=== PATIENT | female | born 1940 | race Caucasian/White ===

== ENCOUNTER 2017-02-01 13:18 | Inpatient (IN) | payer MEDICARE ==
[~2017-02-01] VITALS: Ht 162.6 cm; Wt 76.5 kg
[2017-02-01] MEDS ORDERED: SODIUM CHLORIDE 0.9% 1,000 ML IV ONE (14:17)
[2017-02-01] MEDS ORDERED: SODIUM CHLORIDE FLUSH 10ML SYR IVF ONE (14:30)
[2017-02-01 14:39] LABS: HEMOGLOBIN 15.7 g/dL (11.7-16.4)
[2017-02-01 14:49] LABS: ASPARTATE AMINO TRANSFERASE 40 U/L (15-37); BLOOD UREA NITROGEN 23 mg/dL (7-18)
[2017-02-01] MEDS ORDERED: LOSA50TA6 PO (14:58)
[2017-02-01] MEDS ORDERED: AMLO10TA2 PO (14:58)
[2017-02-01] MEDS ORDERED: HYDR25TA6 PO (14:58)
[2017-02-01] MEDS ORDERED: ATEN25TA PO (14:58)
[2017-02-01] MEDS ORDERED: LEVO125T5 PO (14:58)
[2017-02-01] MEDS ORDERED: GLIP10TA13 PO (14:58)
[2017-02-01] MEDS ORDERED: ONDANSETRON 2MG/ML, 2ML IVPush ONE (15:00)
[2017-02-01] MEDS ORDERED: MORPHINE SULFATE 4 MG/ML, 1ML IVPush ONE (15:00)
[2017-02-01] MEDS ORDERED: LABETALOL 5MG/ML, 20ML IV PRN (16:00)
[2017-02-01] MEDS: INSULIN REGULAR 100 UNITS/ML, 3ML VIAL SQ-INSULIN SCH ×2 (16:00→21:00)
[2017-02-01] MEDS ORDERED: OXYcodone IR 5MG TABLET PO PRN (16:00)
[2017-02-01] MEDS ORDERED: POLYETHYLENE GLYCOL 17 GM PACKET PO PRN (16:00)
[2017-02-01] MEDS ORDERED: DOCUSATE 100 MG CAPSULE PO PRN (16:00)
[2017-02-01] MEDS ORDERED: BISACODYL 10 MG SUPP PR PRN (16:00)
[2017-02-01] MEDS ORDERED: ONDANSETRON 2MG/ML, 2ML ONE (17:00)
[2017-02-01] MEDS ORDERED: MORPHINE SULFATE 4 MG/ML, 1ML ONE (17:00)
[2017-02-01] MEDS ORDERED: HEPARIN 5,000 UNITS/ML, 1ML ONE (19:37)
[2017-02-01] MEDS: HEPARIN 5,000 UNITS/ML, 1ML SQ SCH (19:42)
[2017-02-01] MEDS: NS + 20MEQ KCL 1,000 ML IV SCH (20:55)
[2017-02-01] MEDS: MOVIPREP POWDER 1 PREP KIT PO SCH ×2 (20:56→21:00)
[2017-02-01 23:52] VITALS: BP 134/90
[2017-02-02] MEDS: ONDANSETRON ODT 4 MG PO PRN (00:20)
[2017-02-02 01:18] VITALS: BP 134/83
[2017-02-02] MEDS: HEPARIN 5,000 UNITS/ML, 1ML SQ SCH ×4 (01:19→23:25)
[2017-02-02] MEDS: MORPHINE SULFATE 4 MG/ML, 1ML IVPush PRN ×3 (01:30→23:31)
[2017-02-02 04:54] LABS: BLOOD UREA NITROGEN 19 mg/dL (7-18)
[2017-02-02 04:56] LABS: HEMOGLOBIN 15.2 g/dL (11.7-16.4)
[2017-02-02] MEDS: NS + 20MEQ KCL 1,000 ML IV SCH ×4 (04:58→22:10)
[2017-02-02 07:27] VITALS: BP 164/90
[2017-02-02] MEDS: SENNA/DOCUSATE TABLET PO SCH (08:07)
[2017-02-02] MEDS: LOSARTAN 50MG TABLET PO SCH (08:07)
[2017-02-02] MEDS: AMLODIPINE 5 MG TABLET PO SCH (08:08)
[2017-02-02] MEDS: LEVOTHYROXINE 125 MCG TABLET PO SCH (08:08)
[2017-02-02] MEDS: HYDROCHLOROTHIAZIDE 25 MG TABLET PO SCH (08:08)
[2017-02-02] MEDS: INSULIN REGULAR 100 UNITS/ML, 3ML VIAL SQ-INSULIN SCH ×4 (08:09→21:00)
[2017-02-02] MEDS: ATENOLOL 25 MG TABLET PO SCH (09:00)
[2017-02-02] MEDS ORDERED: FENTANYL PF 100 MCG/2ML ONE (12:20)
[2017-02-02] MEDS ORDERED: MIDAZOLAM 1 MG/ML, 5ML ONE (12:21)
[2017-02-02 13:59] VITALS: BP 165/92
[2017-02-02 18:53] VITALS: BP 129/77
[2017-02-03 02:19] VITALS: BP 120/76
[2017-02-03 04:48] LABS: ASPARTATE AMINO TRANSFERASE 24 U/L (15-37); BLOOD UREA NITROGEN 10 mg/dL (7-18)
[2017-02-03] MEDS: NS + 20MEQ KCL 1,000 ML IV SCH (06:03)
[2017-02-03] MEDS: INSULIN REGULAR 100 UNITS/ML, 3ML VIAL SQ-INSULIN SCH ×3 (06:24→15:56)
[2017-02-03] MEDS ORDERED: MIDAZOLAM 1 MG/ML, 2ML ONE (06:58)
[2017-02-03] MEDS ORDERED: FENTANYL PF 250 MCG/5ML ONE (06:58)
[2017-02-03] MEDS ORDERED: BUPIVACAINE/PF-EPI 0.25% 1:200K ONE (07:08)
[2017-02-03] MEDS ORDERED: GLYCOPYRROLATE 0.2MG/1ML ONE (07:15)
[2017-02-03] MEDS ORDERED: ROCURONIUM 10 MG/ML ONE (07:15)
[2017-02-03] MEDS ORDERED: PHENYLEPHRINE 10 MG/ML ONE (07:15)
[2017-02-03] MEDS ORDERED: PROPOFOL 10 MG/ML, 20ML ONE (07:15)
[2017-02-03] MEDS ORDERED: CEFOTETAN 2 GM ONE (07:15)
[2017-02-03] MEDS ORDERED: ONDANSETRON 2MG/ML, 2ML ONE (07:15)
[2017-02-03] MEDS ORDERED: NEOSTIGMINE 1 MG/ML, 10ML ONE (07:15)
[2017-02-03] MEDS: HEPARIN 5,000 UNITS/ML, 1ML SQ SCH ×2 (07:41→15:57)
[2017-02-03] MEDS: LEVOTHYROXINE 125 MCG TABLET PO SCH (07:42)
[2017-02-03] MEDS: ATENOLOL 25 MG TABLET PO SCH (07:42)
[2017-02-03] MEDS: SENNA/DOCUSATE TABLET PO SCH (07:42)
[2017-02-03] MEDS: AMLODIPINE 5 MG TABLET PO SCH (07:42)
[2017-02-03] MEDS: HYDROCHLOROTHIAZIDE 25 MG TABLET PO SCH (07:42)
[2017-02-03] MEDS: LOSARTAN 50MG TABLET PO SCH (07:42)
[2017-02-03] MEDS ORDERED: FENTANYL PF 100 MCG/2ML IV PRN (08:30)
[2017-02-03] MEDS ORDERED: PROMETHAZINE 25 MG/ML, 1ML IV PRN (08:30)
[2017-02-03] MEDS ORDERED: LABETALOL 5MG/ML, 20ML IV PRN (08:30)
[2017-02-03] MEDS ORDERED: morphine SULFATE 10 MG/ML, 1ML ONE (08:40)
[2017-02-03] MEDS: morphine SULFATE 10 MG/ML, 1ML IV PRN ×2 (08:41→08:51)
[2017-02-03] MEDS: MORPHINE SULFATE 4 MG/ML, 1ML IVPush PRN ×3 (10:41→21:59)
[2017-02-03] MEDS: D5%-0.45NACL+KCL 20MEQ 1,000 ML IV SCH ×2 (11:05→22:42)
[2017-02-03 14:15] VITALS: BP 141/69
[2017-02-03] MEDS ORDERED: LORazepam 2 MG/ML, 1ML IVPush PRN (17:30)
[2017-02-03] MEDS ORDERED: SCOPOLAMINE PATCH, 1.5MG PATCH.TD72 TD PRN (17:30)
[2017-02-03 19:05] VITALS: BP 112/72
[2017-02-04] MEDS: MORPHINE SULFATE 4 MG/ML, 1ML IVPush PRN ×5 (01:52→21:27)
[2017-02-04] MEDS: LEVOTHYROXINE 125 MCG TABLET PO SCH (05:29)
[2017-02-04 06:47] VITALS: BP 113/76
[2017-02-04] MEDS: LOSARTAN 50MG TABLET PO SCH (08:23)
[2017-02-04] MEDS: HYDROCHLOROTHIAZIDE 25 MG TABLET PO SCH (08:24)
[2017-02-04] MEDS: AMLODIPINE 5 MG TABLET PO SCH (08:24)
[2017-02-04] MEDS: SENNA/DOCUSATE TABLET PO SCH (08:24)
[2017-02-04] MEDS: D5%-0.45NACL+KCL 20MEQ 1,000 ML IV SCH (10:41)
[2017-02-05] MEDS: D5%-0.45NACL+KCL 20MEQ 1,000 ML IV SCH ×2 (01:02→13:18)
[2017-02-05] MEDS: MORPHINE SULFATE 4 MG/ML, 1ML IVPush PRN ×6 (01:35→21:44)
[2017-02-05] MEDS: LEVOTHYROXINE 125 MCG TABLET PO SCH (06:00)
[2017-02-05] MEDS: LOSARTAN 50MG TABLET PO SCH (07:06)
[2017-02-05] MEDS: AMLODIPINE 5 MG TABLET PO SCH (07:07)
[2017-02-05] MEDS: SENNA/DOCUSATE TABLET PO SCH (07:07)
[2017-02-05] MEDS: HYDROCHLOROTHIAZIDE 25 MG TABLET PO SCH (07:07)
[2017-02-05] MEDS: ONDANSETRON 2MG/ML, 2ML IVP PRN ×2 (14:12→21:44)
[2017-02-06] MEDS: D5%-0.45NACL+KCL 20MEQ 1,000 ML IV SCH ×2 (02:40→18:17)
[2017-02-06] MEDS: MORPHINE SULFATE 4 MG/ML, 1ML IVPush PRN ×6 (02:45→22:18)
[2017-02-06] MEDS: LEVOTHYROXINE 125 MCG TABLET PO SCH (06:00)
[2017-02-06] MEDS: SENNA/DOCUSATE TABLET PO SCH (09:00)
[2017-02-06] MEDS: ONDANSETRON 2MG/ML, 2ML IVP PRN (09:58)
[2017-02-06] MEDS: ONDANSETRON ODT 4 MG PO PRN (14:18)
[2017-02-07] MEDS: MORPHINE SULFATE 4 MG/ML, 1ML IVPush PRN ×4 (02:05→13:47)
[2017-02-07] MEDS: D5%-0.45NACL+KCL 20MEQ 1,000 ML IV SCH (06:14)
[2017-02-07] MEDS: ONDANSETRON 2MG/ML, 2ML IVP PRN ×2 (07:23→13:46)
[2017-02-07] MEDS ORDERED: PROCHLORPERAZINE 10MG TABLET PO PRN (09:00)
[2017-02-07] MEDS: SENNA/DOCUSATE TABLET PO SCH (10:14)
[2017-02-07] MEDS: ONDANSETRON ODT 4 MG PO PRN (10:30)
== END 2017-02-07 14:07 | disposition hospice, home (50) | DRG 357 ==
LOC: ED 15:07 → EDIP 15:08 → ED 15:18 → 3NW 19:54
PROVIDERS: ADMIT Family Medicine; ATTEND Family Medicine
PROC: 0DBN8ZX Excision of Sigmoid Colon, Via Natural or Artificial Opening Endoscopic, Diagnostic (ICD-10-PCS; 2017-02-02)
PROC: 0DBS0ZX (ICD-10-PCS; principal; 2017-02-03 07:30)
DX: C18.7 Malignant neoplasm of sigmoid colon (principal); C78.6 Secondary malignant neoplasm of retroperitoneum and peritoneum; C78.7 Secondary malignant neoplasm of liver and intrahepatic bile duct; R18.8 Other ascites; R64 Cachexia; E03.9 Hypothyroidism, unspecified; E11.9 Type 2 diabetes mellitus without complications; I10 Essential (primary) hypertension; R16.0 Hepatomegaly, not elsewhere classified; Z66 Do not resuscitate; E66.9 Obesity, unspecified; E78.5 Hyperlipidemia, unspecified; E86.0 Dehydration; R19.7 Diarrhea, unspecified; K59.00 Constipation, unspecified; Z87.891 Personal history of nicotine dependence; Z90.49 Acquired absence of other specified parts of digestive tract; Z98.84 Bariatric surgery status; Z68.28 Body mass index [BMI] 28.0-28.9, adult; Z88.8 Allergy status to other drugs, medicaments and biological substances; Z80.8 Family history of malignant neoplasm of other organs or systems
CPT/HCPCS: 36415; 74000; 80048; 80053; 81001; 82378; 82962; 83605; 83690; 84443; 85025; 85610; 86304; 87086; 87324; 88305; 88307; 93005; 96374; J1644; J1815; J2250; J2405; J2704; J2710; J3010; J3480; J3490; Q0162; J2060; J2270; J2370; J7030; S0074